=== PATIENT | female | born 1990 | race Caucasian/White ===

== ENCOUNTER 2017-02-17 17:47 | Outpatient (CLI) | payer OTHER ==
[~2017-02-17] VITALS: Ht 172.7 cm; Wt 100.0 kg
[2017-02-17 17:57] VITALS: BP 144/86
== END 2017-02-17 20:05 | disposition home or self-care (01) ==
LOC: LDOP 17:47
PROVIDERS: ATTEND Obstetrics & Gynecology
DX: O26.893 Other specified pregnancy related conditions, third trimester (principal); O10.913 Unspecified pre-existing hypertension complicating pregnancy, third trimester; O62.9 Abnormality of forces of labor, unspecified; R10.9 Unspecified abdominal pain; Z3A.39 39 weeks gestation of pregnancy
CPT/HCPCS: 59025; 81003; 99211; G0463

== ENCOUNTER 2017-02-18 05:36 | Inpatient (IN) | payer OTHER ==
[~2017-02-18] VITALS: Ht 172.7 cm; Wt 100.0 kg
[2017-02-18] MEDS ORDERED: OXYTOCIN 30U/ 0.9% NaCL 500ML 500 ML IV PRN (05:42)
[2017-02-18] MEDS ORDERED: OXYTOCIN 30U/ 0.9% NaCL 500ML 500 ML IV ONE (05:42)
[2017-02-18] MEDS ORDERED: AMPICILLIN 2 GM in SODIUM CHLORIDE 0.9% 100 ML IVPB STA (05:42)
[2017-02-18] MEDS: LACTATED RINGERS 1,000 ML IV SCH ×2 (05:57→11:48)
[2017-02-18] MEDS ORDERED: OXYTOCIN 30U/ 0.9% NaCL 500ML 500 ML ONE (05:58)
[2017-02-18] MEDS ORDERED: TERBUTALINE 1 MG/ML, 1ML IVPush PRN (06:00)
[2017-02-18] MEDS ORDERED: ONDANSETRON 2MG/ML, 2ML IVPush PRN (06:00)
[2017-02-18] MEDS ORDERED: FENTANYL PF 100 MCG/2ML IV PRN (06:00)
[2017-02-18] MEDS ORDERED: FENTANYL PF 100 MCG/2ML IVPush PRN (06:00)
[2017-02-18] MEDS ORDERED: CALCIUM CARBONATE 500 MG TAB.CHEW PO PRN (06:00)
[2017-02-18] MEDS ORDERED: NEWBORN KIT ONE (06:04)
[2017-02-18 06:08] LABS: HEMATOCRIT 34.3 % (34.6-47.8); HEMOGLOBIN 11.3 g/dL (11.7-16.4); WHITE BLOOD COUNT 11.6 x10^3/uL (3.4-10)
[2017-02-18 06:29] VITALS: BP 133/93
[2017-02-18] MEDS ORDERED: FENTANYL PF 100 MCG/2ML ONE (07:15)
[2017-02-18] MEDS ORDERED: FENTANYL/BUPIV./NS/PF 250 ML EPIDCONT ONE (07:15)
[2017-02-18] MEDS ORDERED: BUPIVACAINE 0.25% ONE (07:15)
[2017-02-18] MEDS: D5%-LACTATED RINGERS 1,000 ML IV SCH ×3 (07:31→21:42)
[2017-02-18] MEDS: AMPICILLIN 1 GM in SODIUM CHLORIDE 0.9% 50 ML IVPB SCH ×2 (10:00→13:37)
[2017-02-18] MEDS ORDERED: LIDOCAINE 1%, 20ML ONE (10:11)
[2017-02-18] MEDS ORDERED: MISOPROSTOL 200 MCG TABLET ONE (10:11)
[2017-02-18] MEDS ORDERED: LIDOCAINE/PF 1.5%-EPI 1:200K, 30ML ONE (10:38)
[2017-02-18] MEDS: OXYTOCIN 30U/ 0.9% NaCL 500ML 500 ML IV SCH (14:00)
[2017-02-18] MEDS ORDERED: METHYLERGONOVINE 0.2 MG/ML IM PRN (15:00)
[2017-02-18] MEDS ORDERED: MISOPROSTOL 200 MCG TABLET PR PRN (15:00)
[2017-02-18] MEDS ORDERED: ACETAMINOPHEN 325 MG TABLET PO PRN (15:00)
[2017-02-18] MEDS ORDERED: ONDANSETRON 2MG/ML, 2ML IV PRN (15:00)
[2017-02-18] MEDS ORDERED: CARBOPROST TROMETHAMINE 250 MCG/ML, 1ML IM PRN (15:00)
[2017-02-18] MEDS ORDERED: OXYcodone/APAP 5/325MG TABLET PO PRN ×2 (15:00)
[2017-02-18] MEDS ORDERED: IBUPROFEN 600 MG TABLET ONE (15:20)
[2017-02-18] MEDS: IBUPROFEN 600 MG TABLET PO PRN ×2 (15:27→23:53)
[2017-02-18 16:30] VITALS: BP 121/81
[2017-02-18 20:45] VITALS: BP 131/84
[2017-02-18 22:13] LABS: HEMATOCRIT 29.3 % (34.6-47.8); HEMOGLOBIN 9.6 g/dL (11.7-16.4); WHITE BLOOD COUNT 16.2 x10^3/uL (3.4-10)
[2017-02-18] MEDS: DOCUSATE 100 MG CAPSULE PO PRN (23:53)
[2017-02-19] VITALS: BP 124/85
[2017-02-19] MEDS: OXYTOCIN 30U/ 0.9% NaCL 500ML 500 ML IV SCH ×2 (00:44→10:44)
[2017-02-19 03:50] VITALS: BP 126/81
[2017-02-19] MEDS ORDERED: PRENATAL VIT/IRON/FA 1 EACH TABLET ONE (07:57)
[2017-02-19] MEDS: DOCUSATE 100 MG CAPSULE PO PRN (07:59)
[2017-02-19] MEDS: IBUPROFEN 600 MG TABLET PO PRN ×2 (07:59→15:09)
[2017-02-19 08:00] VITALS: BP 140/86
[2017-02-19] MEDS ORDERED: PRENATAL VIT/IRON/FA 1 EACH TABLET PO SCH (09:00)
[2017-02-19] MEDS: FERROUS GLUCONATE 324 MG TABLET PO SCH ×2 (09:28→16:17)
[2017-02-19 12:33] VITALS: BP 131/85
[2017-02-19] MEDS ORDERED: OXYC-302 PO (14:30)
[2017-02-19] MEDS ORDERED: IBUP-1222 PO (14:31)
[2017-02-19] MEDS ORDERED: SENN-52 PO (14:34)
== END 2017-02-19 17:58 | disposition home or self-care (01) | DRG 775 ==
LOC: LDIP 05:36 → 2NW 15:59
PROVIDERS: ADMIT Obstetrics & Gynecology; ATTEND Obstetrics & Gynecology
PROC: 10E0XZZ Delivery of Products of Conception, External Approach (ICD-10-PCS; principal; 2017-02-18)
PROC: 3E033VJ Introduction of Other Hormone into Peripheral Vein, Percutaneous Approach (ICD-10-PCS; 2017-02-18)
PROC: 10907ZC Drainage of Amniotic Fluid, Therapeutic from Products of Conception, Via Natural or Artificial Opening (ICD-10-PCS; 2017-02-18)
PROC: 0HQ9XZZ Repair Perineum Skin, External Approach (ICD-10-PCS; 2017-02-18)
DX: O99.824 Streptococcus B carrier state complicating childbirth (principal); O10.919 Unspecified pre-existing hypertension complicating pregnancy, unspecified trimester; Z3A.39 39 weeks gestation of pregnancy; Z37.0 Single live birth; O77.0 Labor and delivery complicated by meconium in amniotic fluid; O71.82 Other specified trauma to perineum and vulva; O70.0 First degree perineal laceration during delivery
CPT/HCPCS: 36415; 85025; 86850; 86900; J0290; J3010; J3490; J2590; J7120; J7121